=== PATIENT | male | born 1955 | race Hispanic/Latino ===

== ENCOUNTER → 2017-07-08 | Outpatient (CLI) | payer MEDICAID ==
[~2017-07-08] MED LIST: BENZ2TAB10 PO; HALO10TA12 PO; HYDR-4030 PO; LACT10SO8 PO; LEVO75TA10 PO; METF500T6 PO; NADO40TA19 PO; PANT40TA25 PO; PIOG30TA26 PO; RIFA550T PO; SPIR50TA PO; VITAMIN B 12
[2017-07-08 08:29] LABS: BASOPHILS % (AUTO) 0.9 % (0.0-5.0); EOSINOPHILS % (AUTO) 4.3 % (0.0-8.0); HEMATOCRIT 37.7 % (42-54); LYMPHOCYTES % (AUTO) 20.1 % (21.0-51.0); MEAN CORPUSCULAR HEMOGLOBIN 31.2 pg (27.0-33.0); MEAN CORPUSCULAR HGB CONC 35.2 g/dL (32.0-36.0); MEAN CORPUSCULAR VOLUME 88.7 fL (79-99); NEUTROPHILS % (AUTO) 65.7 % (40.0-77.0); PLATELET COUNT (AUTO) 128 K/uL (130-400); RED BLOOD CELL COUNT(AUTO) 4.25 MIL/uL (4.50-6.20); RED CELL DISTRIBUTION WIDTH 13.7 % (11.0-15.5); WHITE BLOOD COUNT (AUTO) 5.8 K/uL (4.8-10.8)
[2017-07-08 08:38] LABS: INR 1.13 (0.85-1.15); PROTHROMBIN TIME 11.8 SEC (9.6-11.6)
== END | disposition home or self-care (01) ==
LOC: RAH 07:11
PROVIDERS: ATTEND Internal Medicine Gastroenterology
DX: K74.60 Unspecified cirrhosis of liver (principal); K80.20 Calculus of gallbladder without cholecystitis without obstruction; R16.1 Splenomegaly, not elsewhere classified
CPT/HCPCS: 36415; 76700; 82105; 85025; 85610

== ENCOUNTER 2017-07-10 07:17 | Day surgery (SDC) | payer MEDICAID ==
[~2017-07-10] VITALS: Ht 170.2 cm; Wt 163.1 kg
[~2017-07-10 07:17] MED LIST changes: -HYDR-4030 PO; -SPIR50TA PO
[2017-07-10 08:00] VITALS: BP 155/55
[2017-07-10] MEDS ORDERED: NADO40TA19 PO (08:28)
[2017-07-10] MEDS ORDERED: SPIR50TA PO (08:28)
[2017-07-10] MEDS ORDERED: BENZ2TAB10 PO (08:28)
[2017-07-10] MEDS ORDERED: HYDR-4030 PO (08:28)
[2017-07-10] MEDS ORDERED: SODIUM CHLORIDE 0.9% 1000ML 1,000 ML IV ONE (08:53)
[2017-07-10] MEDS ORDERED: PROPOFOL 10 MG/ML 20ML VIAL IV ONE ×2 (08:54)
[2017-07-10 09:07] VITALS: BP 104/53
== END 2017-07-10 09:42 | disposition home or self-care (01) ==
LOC: DAH 07:17
PROVIDERS: ATTEND Internal Medicine Gastroenterology
DX: I85.00 Esophageal varices without bleeding (principal); E11.9 Type 2 diabetes mellitus without complications; I10 Essential (primary) hypertension; K74.69 Other cirrhosis of liver; F20.9 Schizophrenia, unspecified; K21.9 Gastro-esophageal reflux disease without esophagitis; G47.33 Obstructive sleep apnea (adult) (pediatric); E03.9 Hypothyroidism, unspecified; M19.90 Unspecified osteoarthritis, unspecified site; Z88.0 Allergy status to penicillin
CPT/HCPCS: 43235; 82948 ×2; A4606; J2704 ×2; J7030

== ENCOUNTER 2019-07-28 09:29 | Day surgery (SDC) | payer MEDICAID ==
[~2019-07-28] VITALS: Ht 172.7 cm; Wt 138.3 kg
[~2019-07-28 09:29] MED LIST changes: +BENZ-51 PO; +EMPA10TA PO; +LACT10SO62 PO; -LACT10SO8 PO; +LORA10TA7 PO; +LOSA100T58 PO; +METF-446 PO; -METF500T6 PO; +OZEMPIC INJ; -PIOG30TA26 PO; +SIMV-43 PO; +SODIUM CHLORIDE 0.9% 1000ML 1,000 ML IV ONE; +SPIR50TA PO; -VITAMIN B 12
[2019-07-28 11:05] VITALS: BP 91/53
[2019-07-28] MEDS ORDERED: PROPOFOL 10 MG/ML 20ML VIAL IV ONE (11:20)
[2019-07-28 11:30] VITALS: BP 89/37
[2019-07-28 12:00] VITALS: BP 114/61
[2019-07-28 12:15] VITALS: BP 112/60
== END 2019-07-28 12:30 | disposition home or self-care (01) ==
LOC: ENDO 09:29 → DAH 09:29 → ENDO 12:30
PROVIDERS: ATTEND Internal Medicine Gastroenterology
DX: K74.60 Unspecified cirrhosis of liver (principal); I85.10 Secondary esophageal varices without bleeding; K31.89 Other diseases of stomach and duodenum; K21.9 Gastro-esophageal reflux disease without esophagitis; E11.9 Type 2 diabetes mellitus without complications; F20.9 Schizophrenia, unspecified; E78.00 Pure hypercholesterolemia, unspecified; M19.90 Unspecified osteoarthritis, unspecified site; E03.9 Hypothyroidism, unspecified; I50.20 Unspecified systolic (congestive) heart failure; I11.0 Hypertensive heart disease with heart failure; E66.01 Morbid (severe) obesity due to excess calories
CPT/HCPCS: 43239; 82948; A4215 ×2; A4221; A4222; A4223; A4606; A4620; A4663; J2704; J7030

== ENCOUNTER → 2020-01-11 | Outpatient (CLI) | payer MEDICAID ==
[~2020-01-11] MED LIST changes: -BENZ-51 PO; -NADO40TA19 PO; +NADO40TA2 PO; -OZEMPIC INJ; -PANT40TA25 PO; +PANT40TA54 PO; -SODIUM CHLORIDE 0.9% 1000ML 1,000 ML IV ONE
== END | disposition home or self-care (01) ==
LOC: RAH 09:07
PROVIDERS: ATTEND Internal Medicine Gastroenterology
DX: K74.60 Unspecified cirrhosis of liver (principal); K80.80 Other cholelithiasis without obstruction
CPT/HCPCS: 76700; 93975

== ENCOUNTER 2020-07-25 08:33 | Day surgery (SDC) | payer MEDICAID ==
[2020-07-25] VITALS (11 sets, daily range): BP systolic 99–125; BP diastolic 35–67
[~2020-07-25] VITALS: Ht 172.7 cm; Wt 131.5 kg
[~2020-07-25 08:33] MED LIST changes: +0.9%NACL 1000ML 1,000 ML IV ONE
[2020-07-25] MEDS ORDERED: PROPOFOL 10 MG/ML 20ML VIAL IV ONE (10:20)
[2020-07-25] MEDS ORDERED: MIDAZOLAM HCL 1 MG/ML 2ML VIAL ONE (10:20)
== END 2020-07-25 13:00 | disposition home or self-care (01) ==
LOC: DAH 08:33 → ENDO 08:33
PROVIDERS: ATTEND Internal Medicine
DX: K29.50 Unspecified chronic gastritis without bleeding (principal); I85.10 Secondary esophageal varices without bleeding; Z20.828 Contact with and (suspected) exposure to other viral communicable diseases; K74.69 Other cirrhosis of liver; K76.6 Portal hypertension; I11.0 Hypertensive heart disease with heart failure; I50.20 Unspecified systolic (congestive) heart failure; E66.01 Morbid (severe) obesity due to excess calories; M19.90 Unspecified osteoarthritis, unspecified site; E11.9 Type 2 diabetes mellitus without complications; E03.9 Hypothyroidism, unspecified; E78.00 Pure hypercholesterolemia, unspecified; F20.9 Schizophrenia, unspecified; Z88.2 Allergy status to sulfonamides; Z88.6 Allergy status to analgesic agent; Z68.42 Body mass index [BMI] 45.0-49.9, adult; Z79.84 Long term (current) use of oral hypoglycemic drugs; Z79.890 Hormone replacement therapy; Z79.899 Other long term (current) drug therapy
CPT/HCPCS: 43239; 82948 ×2; 88305; 88342; A4215 ×2; A4221; A4222; A4223; A4606; A4620; A4657; A4663; C9803; J2250; J2704; J7030; U0003

== ENCOUNTER → 2020-08-01 | Outpatient (CLI) | payer MEDICAID ==
[~2020-08-01] MED LIST changes: -0.9%NACL 1000ML 1,000 ML IV ONE
== END | disposition home or self-care (01) ==
LOC: RAH 08:55
PROVIDERS: ATTEND Internal Medicine Gastroenterology
DX: K80.20 Calculus of gallbladder without cholecystitis without obstruction (principal); K74.60 Unspecified cirrhosis of liver
CPT/HCPCS: 76700; 93975

== ENCOUNTER → 2021-01-15 | Outpatient (CLI) | payer MEDICAID ==
[2021-01-15 10:24] LABS: BASOPHILS % (AUTO) 0.5 % (0.0-5.0); HEMATOCRIT 43.4 % (42-54); LYMPHOCYTES % (AUTO) 19.1 % (21.0-51.0); MEAN CORPUSCULAR HEMOGLOBIN 30.2 pg (27.0-33.0); MEAN CORPUSCULAR HGB CONC 34.8 g/dL (32.0-36.0); MEAN CORPUSCULAR VOLUME 86.8 fL (79-99); MONOCYTES % (AUTO) 8.8 % (3.0-13.0); NEUTROPHILS % (AUTO) 66.3 % (40.0-77.0); PLATELET COUNT (AUTO) 111 K/uL (130-400); RED CELL DISTRIBUTION WIDTH 12.9 % (11.0-15.5); WHITE BLOOD COUNT (AUTO) 6.3 K/uL (4.8-10.8)
[2021-01-15 10:34] LABS: INR 1.08 (0.85-1.15); PROTHROMBIN TIME 11.7 SEC (9.6-11.6)
[2021-01-15 11:15] LABS: ALBUMIN 3.4 g/dL (3.5-5.0); BILIRUBIN,TOTAL 1.3 mg/dL (0.2-1.0); CREATININE 1.1 mg/dL (0.5-1.5); POTASSIUM 4.3 mmol/L (3.5-5.1)
== END | disposition home or self-care (01) ==
LOC: RAH 09:23
PROVIDERS: ATTEND Internal Medicine Gastroenterology
DX: K74.60 Unspecified cirrhosis of liver (principal); K80.80 Other cholelithiasis without obstruction
CPT/HCPCS: 36415; 76700; 80053; 82105; 85025; 85610; 93975

== ENCOUNTER → 2021-07-18 | Outpatient (CLI) | payer MEDICAID | END | disposition home or self-care (01) | LOC: RAH 08:52 | PROVIDERS: ATTEND Internal Medicine Gastroenterology | DX: K74.60 Unspecified cirrhosis of liver (principal); Z95.828 Presence of other vascular implants and grafts | CPT/HCPCS: 76700; 93975 ==